=== PATIENT | female | born 1980 | race Caucasian/White ===

== ENCOUNTER → 2016-07-31 | Outpatient (CLI) | payer BC ==
[~2016-07-31] VITALS: Ht 162.6 cm; Wt 89.1 kg
[~2016-07-31] MED LIST: LEVO-T112 MCG PO; MULTI-DAY VITA1 EACH PO
[2016-07-31 08:24] VITALS: BP 118/75
== END | disposition home or self-care (01) ==
LOC: IVINF 07-30 09:00
PROVIDERS: Internal Medicine Endocrinology, Diabetes & Metabolism
DX: R53.83 Other fatigue (principal)
CPT/HCPCS: 80400; 82024 90; 82533 91; 96374; J0834